=== PATIENT | female | born 1970 | race Caucasian/White ===

== ENCOUNTER → 2020-11-07 | Outpatient (CLI) | payer OTHER ==
[~2020-11-07] MED LIST: OMNICEF 300 MG300 MG PO; PYRIDIUM100 MG PO; TORADOL 10 MG T10 MG PO; ZOFRAN ODT 4 MG4 MG PO; ZOFRAN4 MG PO
== END ==
LOC: EXRD 10-27 14:15
DX: M79.604 Pain in right leg (principal); M79.605 Pain in left leg; I70.203 Unspecified atherosclerosis of native arteries of extremities, bilateral legs
CPT/HCPCS: 93925

== ENCOUNTER → 2020-11-29 | Outpatient (CLI) | payer OTHER | LOC: CT 07:47 | DX: I70.219 Atherosclerosis of native arteries of extremities with intermittent claudication, unspecified extremity (principal); N20.0 Calculus of kidney; K76.0 Fatty (change of) liver, not elsewhere classified; N83.202 Unspecified ovarian cyst, left side | CPT/HCPCS: 36415; 75635; 82565; 84520; Q9967 ==

== ENCOUNTER → 2021-09-24 | Outpatient (CLI) | payer OTHER | LOC: US 07:56 | DX: K76.0 Fatty (change of) liver, not elsewhere classified (principal); N20.0 Calculus of kidney | CPT/HCPCS: 76700 ==